=== PATIENT | male | born 1950 | race Caucasian/White ===

== ENCOUNTER 2017-01-24 08:56 | Day surgery (SDC) | payer MEDICARE, OTHER ==
--- NOTE | ~2017-01-24 | EGD ---
EGD REPORT [facility] [address] [place] [address] NAME: LAWRENCE EVANGELISTA : [birth year] STATUS : REG [facility]#: [id number] AGE: 66 ADM/REG DATE : 01/24/17 MR#: [id number] REPORT SERV DATE: 01/24/17 DICTATED BY: ANA CRISTINA IBARRA DATE: 01/24/17 REPORT STATUS : Draft TRANSCRIBED BY: [facility] DATE: 01/24/17 [facility] Patient Name: Lawrence Evangelista Date of : 1950 Attending MD: ANA CRISTINA IBARRA MD Procedure Date No Time: 01/24/2017 Procedure: Colonoscopy Indications: Rectal bleeding, Rectal pain Referring MD: Kimberly Earl Medicines: as per anesthesia Complications: No immediate complications. Procedure: Pre-Anesthesia Assessment: - ASA Grade Assessment: II - A patient with mild systemic disease. After I obtained informed consent, the scope was passed under direct vision. Throughout the procedure, the patient's blood pressure, pulse, and oxygen saturations were monitored continuously. The PCF [id number] was introduced through the anus and advanced to the cecum, identified by appendiceal orifice and ileocecal valve. The colonoscopy was somewhat difficult due to significant looping and a tortuous colon. The patient tolerated the procedure. The quality of the bowel preparation was fair. Findings: The perianal and digital rectal examinations were normal. Internal hemorrhoids were found during endoscopy and were mild. Impression: - Internal hemorrhoids. Recommendation: - Repeat colonoscopy in 10 years for surveillance. Procedure Code(s): --- Professional --- 10295, Colonoscopy, flexible, proximal to splenic flexure; diagnostic, with or without collection of specimen(s) by brushing or washing, with or without colon decompression (separate procedure) Diagnosis Code(s): --- Professional --- K64.8, Other hemorrhoids K62.5, Hemorrhage of anus and rectum K62.89, Other specified diseases of anus and rectum EGD REPORT [facility] [address] [id number] NAME: LAWRENCE EVANGELISTA : [birth year] STATUS : REG [facility]#: [id number] AGE: 66 ADM/REG DATE : 01/24/17 MR#: [id number] REPORT SERV DATE: 01/24/17 DICTATED BY: ANA CRISTINA IBARRA. DATE: 01/24/17 REPORT STATUS : Draft TRANSCRIBED BY: [employer] DATE: 01/24/17 CPT copyright 2013 [employer]. All rights reserved. The codes documented in this report are preliminary and upon transformer coil winder review may be revised to meet current compliance requirements. ANA CRISTINA IBARRA MD 01/24/2017 11:46 AM This report has been signed electronically. Number of Addenda: 0 Note Initiated On: 01/24/2017 11:09 AM Scope Withdrawal Time 0 hours 8 minutes 47 seconds [address] [id number]
[~2017-01-24 08:56] MED LIST: *DENIES; MULTIPLE VIT PO; POTASSIUM
== END 2017-01-24 23:59 | disposition home or self-care (01) ==
LOC: DMU 08:56
PROVIDERS: Internal Medicine Gastroenterology
PROC: 0DJD8ZZ Inspection of Lower Intestinal Tract, Via Natural or Artificial Opening Endoscopic (ICD-10-PCS; principal; 2017-01-24 10:30)
DX: K64.8 Other hemorrhoids (principal); H91.90 Unspecified hearing loss, unspecified ear; K62.5 Hemorrhage of anus and rectum; Z90.89 Acquired absence of other organs; Z98.890 Other specified postprocedural states; Z97.4 Presence of external hearing-aid; Z87.891 Personal history of nicotine dependence; Z79.899 Other long term (current) drug therapy